=== PATIENT | female | born 1965 | race Caucasian/White ===

== ENCOUNTER 2021-01-26 02:16 | Emergency (ER) | payer OTHER, MEDICAID ==
[2021-01-26] MEDS ORDERED: LORazepam 2 MG/ML SDV IVPUSH ONE (02:25)
[2021-01-26] MEDS ORDERED: fentaNYL 100 MCG/2 ML SDV IVPUSH ONE (02:25)
--- NOTE | 2021-01-26 02:33 | EDM.PDOC ---
<Freddie Deng M - Last Filed: 01/26/21 03:21> ED HPI GENERAL MEDICAL PROBLEM - General Stated Complaint: TRAUMA CODE Time Seen by Provider: 01/26/21 02:26 Source of Information: Reports: Patient, Significant Other History Limitations: Reports: Altered Mental Status - History of Present Illness INITIAL COMMENTS - FREE TEXT/NARRATIVE: Geeta was brought in by ambulance after she called with complaints of epigastric pain,nausea and vomiting. Upon arrival of the EMS at home,she had a seizure like activity and lost her pulse. CPR was initiated for 2 min with ROSC. She received 100mcg of Fentanyl,1 mg of Versed and 4 mg of IV Zofran. She is quite agitated and unable to give much history. Her reports that she was recently treated for Colon cancer with hemicolectomy,and it is in remission. She also has GERD - Related Data Allergies Allergy/AdvReac Type Severity Reaction Status Date / Time gluten Allergy Headache Verified 01/26/21 03:02 Penicillins Allergy Hives Verified 01/26/21 03:02 Home Meds: Home Meds Calcium Carb/Vitamin D3/Vit K1 [Calcium + D Soft Chewable Tab] 2 tab PO BID 01/26/21 [History] Multivitamin with Minerals [Multivitamins with Minerals] 1 each PO DAILY 01/26/21 [History] Pantoprazole Sodium [Protonix] 40 mg PO BID 01/26/21 [History] dexAMETHasone [Dexamethasone] 4 mg PO BID 01/26/21 [History] ED ROS GENERAL - Review of Systems Review Of Systems: Comprehensive ROS is negative, except as noted in HPI. ED EXAM, GI/ABD - Physical Exam Exam: See Below Exam Limited By: Altered Mental Status General Appearance: Anxious, Mild Distress Nose: Normal Inspection Throat/Mouth: Normal Inspection, Normal Lips Head: Atraumatic Respiratory/Chest: Lungs Clear GI/Abdominal Exam: Normal Bowel Sounds, Non-Tender, Distended. No: Guarding, Rigid, Rebound Extremities: Normal Inspection, Pallor Neurological: Confused Psychiatric: Anxious Skin Exam: Warm #1 Interpretation EKG Date: 01/26/21 Time: 02:15 Rate (Beats/Min): 123 [place]: Normal P-Wave: Present Comparison: NA - No Prior EKG Course - Vital Signs Text/Narrative:: CT abd pelvis showed gas in the bladder? Infection,. We will obtain a UA,start antibiotic Departure - Departure Disposition: Home, Self-Care 01 Clinical Impression: Cardiac arrest, H/O colon cancer, stage IV Abdominal pain Qualifiers: Abdominal location: epigastric Qualified Code(s): R10.13 - Epigastric pain - Discharge Information Instructions: Compression-Only CPR, Adult Referrals: Nayeli De Leon MD [Primary Care Provider] - Additional Instructions: Please read discharge instructions on post CPR and colon CA Keep your appointment for your chemotherapy Follow up with your doctor tomorrow Return to the ED anytime if you don't feel well at all - Problem List & Annotations (1) Abdominal pain SNOMED Code(s): 12325854 Code(s): R10.9 - UNSPECIFIED ABDOMINAL PAIN Status: Acute Current Visit: Yes Qualifiers: Abdominal location: epigastric Qualified Code(s): R10.13 - Epigastric pain (2) H/O colon cancer, stage IV SNOMED Code(s): 007757794, 412365787 Code(s): Z85.038 - PERSONAL HISTORY OF MALIGNANT NEOPLASM OF LARGE INTESTINE Status: Acute Current Visit: No (3) Seizure SNOMED Code(s): 25948331 Code(s): R56.9 - UNSPECIFIED CONVULSIONS Status: Acute Current Visit: No (4) Altered mental state SNOMED Code(s): 497128687 Code(s): R41.82 - ALTERED MENTAL STATUS, UNSPECIFIED Status: Acute Current Visit: No (5) Cardiac arrest SNOMED Code(s): 328501682 Code(s): I46.9 - CARDIAC ARREST, CAUSE UNSPECIFIED Status: Acute Current Visit: No (6) HTN (hypertension) SNOMED Code(s): 32391909 Code(s): I10 - ESSENTIAL (PRIMARY) HYPERTENSION Status: Acute Current Visit: No (7) Leucocytosis SNOMED Code(s): 366461262, 440186820 Code(s): D72.829 - ELEVATED WHITE BLOOD CELL COUNT, UNSPECIFIED Status: Acute Current Visit: Yes - Problem List Review Problem List Initiated/Reviewed/Updated: Yes - Assessment/Plan Assessment:: Obtain 2 sets of blood cultures and start empiric abx therapy,IVF replacement. No beds available at [facility], <Shiva Muñiz - Last Filed: 01/26/21 18:20> Course - Vital Signs Last Recorded V/S: Last Vital Signs Temp Pulse 99 01/26/21 05:08 Resp 31 H 01/26/21 05:08 BP 121/77 01/26/21 05:08 Pulse Ox 100 01/26/21 05:08 - Orders/Labs/Meds Orders: Active Orders 24 hr Category Date Time Status Ang Chest [CT] Stat Exams 01/26/21 12:49 Taken Chest Abdomen Pelvis wo Cont [CT] Stat Exams 01/26/21 02:24 Taken Head wo Cont [CT] Stat Exams 01/26/21 13:23 Taken CULTURE BLOOD [BC] Urgent Lab 01/26/21 03:00 Results CULTURE BLOOD [BC] Urgent Lab 01/26/21 03:10 Received LORazepam [Ativan] Med 01/26/21 03:14 Active 0.5 mg IVPUSH Q4H PRN cefTRIAXone [Rocephin] Med 01/26/21 03:15 Active 2 gm IVPUSH Q24H fentaNYL [Sublimaze] Med 01/26/21 03:14 Active 50 mcg IVPUSH Q2H PRN Blood Culture x2 Reflex Set [OM.PC] Urgent Oth 01/26/21 02:42 Ordered EKG 12 Lead [EK] Routine Ther 01/26/21 02:24 Ordered Medication Orders Ceftriaxone Sodium (Ceftriaxone 2 Gm Vial) 2 gm IVPUSH Q24H CARY Last Admin: 01/26/21 03:43 Dose: 2 gm Documented by: NATASHA Fentanyl (Fentanyl 100 Mcg/2 Ml Sdv) 50 mcg IVPUSH Q2H PRN PRN Reason: Agitation Lorazepam (Lorazepam 2 Mg/Ml Sdv) 0.5 mg IVPUSH Q4H PRN PRN Reason: Agitation Last Admin: 01/26/21 03:43 Dose: 0.5 mg Documented by: NATASHA Labs: Laboratory Tests 01/26/21 01/26/21 01/26/21 Range/Units 02:25 02:25 02:25 WBC 30.1 H* (3.0-10.3) x10-3/uL RBC 5.80 H (3.60-5.20) x10(6)uL Hgb 16.4 H (11.4-15.5) g/dL Hct 51.7 H (34.2-48.2) % MCV 89.0 (76.7-100.5) fL MCH 28.2 (23.9-33.9) pg MCHC 31.6 L (31.9-34.8) g/dL RDW 14.7 (12.3-16.5) % Plt Count 190 (151-488) x10(3)uL MPV 6.8 L (7.1-12.4) fL Add Manual Diff Yes Neutrophils % (Manual) 70 (46-82) % Band Neutrophils % 1 (0-6) % Lymphocytes % (Manual) 22 (13-37) % Monocytes % (Manual) 5 (4-12) % Eosinophils % (Manual) 2 (0-5) % Sodium 144 (135-145) mmol/L Potassium 3.8 (3.5-5.3) mmol/L Chloride 104 (100-110) mmol/L Carbon Dioxide 22 (21-32) mmol/L BUN 19 H (7-18) mg/dL Creatinine 0.9 (0.55-1.02) mg/dL Est Cr Clr Drug Dosing TNP Estimated GFR (MDRD) > 60 (>60) BUN/Creatinine Ratio 21.1 H (9-20) Glucose 146 H (80-116) mg/dL POC Glucose (80-116) mg/dL Lactic Acid (0.4-2.0) mmol/L Calcium 9.3 (8.6-10.2) mg/dL Total Bilirubin (0.1-1.3) mg/dL Direct Bilirubin (0.10-0.20) mg/dL AST (5-25) IU/L ALT (12-36) U/L Alkaline Phosphatase (56-112) IU/L Troponin I 8.2 (4.0-60.3) pg/mL C-Reactive Protein < 0.2 L (0.5-0.9) mg/dL Total Protein (6.0-8.0) g/dL Albumin (3.5-5.2) g/dL Globulin g/dL Albumin/Globulin Ratio Urine Color (YELLOW) Urine Appearance (CLEAR) Urine pH (5.0-6.5) Ur Specific Flushing (1.010-1.025) Urine Protein (NEGATIVE) mg/dL Urine Glucose (UA) (NORMAL) mg/dL Urine Ketones (NEGATIVE) mg/dL Urine Occult Blood (NEGATIVE) Urine Nitrite (NEGATIVE) Urine Bilirubin (NEGATIVE) Urine Urobilinogen (NEGATIVE) mg/dL Ur Leukocyte Esterase (NEGATIVE) Urine RBC (0-5) Urine WBC (0-5) Ur Squamous Epith Cells (NS,R,O) Urine Bacteria (NS) Fine Granular Casts (NS) Coarse Granular Casts (NS) SARS-CoV-2 RNA (GLADYS) (NEGATIVE) 01/26/21 01/26/21 01/26/21 Range/Units 02:25 02:31 03:35 WBC (3.0-10.3) x10-3/uL RBC (3.60-5.20) x10(6)uL Hgb (11.4-15.5) g/dL Hct (34.2-48.2) % MCV (76.7-100.5) fL MCH (23.9-33.9) pg MCHC (31.9-34.8) g/dL RDW (12.3-16.5) % Plt Count (151-488) x10(3)uL MPV (7.1-12.4) fL Add Manual Diff Neutrophils % (Manual) (46-82) % Band Neutrophils % (0-6) % Lymphocytes % (Manual) (13-37) % Monocytes % (Manual) (4-12) % Eosinophils % (Manual) (0-5) % Sodium (135-145) mmol/L Potassium (3.5-5.3) mmol/L Chloride (100-110) mmol/L Carbon Dioxide (21-32) mmol/L BUN (7-18) mg/dL Creatinine (0.55-1.02) mg/dL Est Cr Clr Drug Dosing Estimated GFR (MDRD) (>60) BUN/Creatinine Ratio (9-20) Glucose (80-116) mg/dL POC Glucose 118 H (80-116) mg/dL Lactic Acid (0.4-2.0) mmol/L Calcium (8.6-10.2) mg/dL Total Bilirubin 1.8 H (0.1-1.3) mg/dL Direct Bilirubin 0.84 H (0.10-0.20) mg/dL AST 1627 H* (5-25) IU/L ALT 1497 H* (12-36) U/L Alkaline Phosphatase 151 H (56-112) IU/L Troponin I (4.0-60.3) pg/mL C-Reactive Protein (0.5-0.9) mg/dL Total Protein 7.0 (6.0-8.0) g/dL Albumin 3.8 (3.5-5.2) g/dL Globulin g/dL Albumin/Globulin Ratio Urine Color Yellow (YELLOW) Urine Appearance Slightly cloudy (CLEAR) Urine pH 6.5 (5.0-6.5) Ur Specific [place]ushing 1.020 (1.010-1.025) Urine Protein 100 H (NEGATIVE) mg/dL Urine Glucose (UA) Normal (NORMAL) mg/dL Urine Ketones 15 H (NEGATIVE) mg/dL Urine Occult Blood Large H (NEGATIVE) Urine Nitrite Negative (NEGATIVE) Urine Bilirubin Negative (NEGATIVE) Urine Urobilinogen Normal (NEGATIVE) mg/dL Ur Leukocyte Esterase Negative (NEGATIVE) Urine RBC 5-10 H (0-5) Urine WBC 0-5 (0-5) Ur Squamous Epith Cells Few H (NS,R,O) Urine Bacteria Moderate H (NS) Fine Granular Casts Few H (NS) Coarse Granular Casts Few H (NS) SARS-CoV-2 RNA (GLADYS) (NEGATIVE) 01/26/21 01/26/21 01/26/21 Range/Units 05:40 05:40 05:40 WBC 10.9 H (3.0-10.3) x10-3/uL RBC 4.88 (3.60-5.20) x10(6)uL Hgb 13.9 (11.4-15.5) g/dL Hct 41.8 (34.2-48.2) % MCV 85.6 (76.7-100.5) fL MCH 28.4 (23.9-33.9) pg MCHC 33.2 (31.9-34.8) g/dL RDW 14.1 (12.3-16.5) % Plt Count 52 L (151-488) x10(3)uL MPV 6.6 L (7.1-12.4) fL Add Manual Diff Yes Neutrophils % (Manual) 90 H (46-82) % Band Neutrophils % 2 (0-6) % Lymphocytes % (Manual) 5 L (13-37) % Monocytes % (Manual) 3 L (4-12) % Eosinophils % (Manual) (0-5) % Sodium 142 (135-145) mmol/L Potassium 4.4 (3.5-5.3) mmol/L Chloride 106 (100-110) mmol/L Carbon Dioxide 28 (21-32) mmol/L BUN 20 H (7-18) mg/dL Creatinine 0.9 (0.55-1.02) mg/dL Est Cr Clr Drug Dosing 50.73 Estimated GFR (MDRD) > 60 (>60) BUN/Creatinine Ratio 22.2 H (9-20) Glucose 110 (80-116) mg/dL POC Glucose (80-116) mg/dL Lactic Acid 2.7 H* (0.4-2.0) mmol/L Calcium 8.6 (8.6-10.2) mg/dL Total Bilirubin 3.3 H (0.1-1.3) mg/dL Direct Bilirubin (0.10-0.20) mg/dL AST 1792 H* D (5-25) IU/L ALT 1622 H* D (12-36) U/L Alkaline Phosphatase 112 (56-112) IU/L Troponin I (4.0-60.3) pg/mL C-Reactive Protein (0.5-0.9) mg/dL Total Protein 5.6 L (6.0-8.0) g/dL Albumin 3.1 L (3.5-5.2) g/dL Globulin 2.5 g/dL Albumin/Globulin Ratio 1.2 Urine Color (YELLOW) Urine Appearance (CLEAR) Urine pH (5.0-6.5) Ur Specific Flushing (1.010-1.025) Urine Protein (NEGATIVE) mg/dL Urine Glucose (UA) (NORMAL) mg/dL Urine Ketones (NEGATIVE) mg/dL Urine Occult Blood (NEGATIVE) Urine Nitrite (NEGATIVE) Urine Bilirubin (NEGATIVE) Urine Urobilinogen (NEGATIVE) mg/dL Ur Leukocyte Esterase (NEGATIVE) Urine RBC (0-5) Urine WBC (0-5) Ur Squamous Epith Cells (NS,R,O) Urine Bacteria (NS) Fine Granular Casts (NS) Coarse Granular Casts (NS) SARS-CoV-2 RNA (GLADYS) (NEGATIVE) 01/26/21 01/26/21 01/26/21 Range/Units 08:40 08:40 09:33 WBC (3.0-10.3) x10-3/uL RBC (3.60-5.20) x10(6)uL Hgb (11.4-15.5) g/dL Hct (34.2-48.2) % MCV (76.7-100.5) fL MCH (23.9-33.9) pg MCHC (31.9-34.8) g/dL RDW (12.3-16.5) % Plt Count (151-488) x10(3)uL MPV (7.1-12.4) fL Add Manual Diff Neutrophils % (Manual) (46-82) % Band Neutrophils % (0-6) % Lymphocytes % (Manual) (13-37) % Monocytes % (Manual) (4-12) % Eosinophils % (Manual) (0-5) % Sodium (135-145) mmol/L Potassium (3.5-5.3) mmol/L Chloride (100-110) mmol/L Carbon Dioxide (21-32) mmol/L BUN (7-18) mg/dL Creatinine (0.55-1.02) mg/dL Est Cr Clr Drug Dosing Estimated GFR (MDRD) (>60) BUN/Creatinine Ratio (9-20) Glucose (80-116) mg/dL POC Glucose (80-116) mg/dL Lactic Acid 1.7 (0.4-2.0) mmol/L Calcium (8.6-10.2) mg/dL Total Bilirubin (0.1-1.3) mg/dL Direct Bilirubin (0.10-0.20) mg/dL AST (5-25) IU/L ALT (12-36) U/L Alkaline Phosphatase (56-112) IU/L Troponin I 54.4 (4.0-60.3) pg/mL C-Reactive Protein (0.5-0.9) mg/dL Total Protein (6.0-8.0) g/dL Albumin (3.5-5.2) g/dL Globulin g/dL Albumin/Globulin Ratio Urine Color (YELLOW) Urine Appearance (CLEAR) Urine pH (5.0-6.5) Ur Specific Flushing (1.010-1.025) Urine Protein (NEGATIVE) mg/dL Urine Glucose (UA) (NORMAL) mg/dL Urine Ketones (NEGATIVE) mg/dL Urine Occult Blood (NEGATIVE) Urine Nitrite (NEGATIVE) Urine Bilirubin (NEGATIVE) Urine Urobilinogen (NEGATIVE) mg/dL Ur Leukocyte Esterase (NEGATIVE) Urine RBC (0-5) Urine WBC (0-5) Ur Squamous Epith Cells (NS,R,O) Urine Bacteria (NS) Fine Granular Casts (NS) Coarse Granular Casts (NS) SARS-CoV-2 RNA (GLADYS) Negative (NEGATIVE) Meds: Medications Generic Name Dose Route Start Last Admin Trade Name Freq PRN Reason Stop Dose Admin Ceftriaxone Sodium 2 gm 01/26/21 03:15 01/26/21 03:43 Ceftriaxone 2 Gm Vial IVPUSH 2 gm Q24H CARY Administration Fentanyl 50 mcg 01/26/21 03:14 Fentanyl 100 Mcg/2 Ml Sdv IVPUSH Q2H PRN Agitation Lorazepam 0.5 mg 01/26/21 03:14 01/26/21 03:43 Lorazepam 2 Mg/Ml Sdv IVPUSH 0.5 mg Q4H PRN Administration Agitation Discontinued Medications Generic Name Dose Route Start Last Admin Trade Name Freq PRN Reason Stop Dose Admin Hydrocodone Bitart/Acetaminophen 2 tab 01/26/21 12:55 01/26/21 13:02 Acetaminophen/Hydrocodone 325-5 Mg Tab PO 01/26/21 12:56 2 tab NOW STA Administration Fentanyl 100 mcg 01/26/21 02:25 01/26/21 02:25 Fentanyl 100 Mcg/2 Ml Sdv IVPUSH 01/26/21 02:26 100 mcg ONETIME ONE Administration Iopamidol 75 ml 01/26/21 13:37 01/26/21 14:08 Iopamidol 755 Mg/Ml 75 Ml Bottle IV 01/26/21 13:38 75 ml ASDIRECTED ONE Administration Ketorolac Tromethamine 30 mg 01/26/21 07:25 01/26/21 07:29 Ketorolac 30 Mg/Ml Sdv IVPUSH 01/26/21 07:26 30 mg NOW STA Administration Lorazepam 1 mg 01/26/21 02:25 01/26/21 02:25 Lorazepam 2 Mg/Ml Sdv IVPUSH 01/26/21 02:26 1 mg ONETIME ONE Administration Departure - Departure Time of Disposition: 18:30 Condition: Good - My Orders Last 24 Hours: My Active Orders 01/26/21 12:49 Ang Chest [CT] Stat 01/26/21 13:23 Head wo Cont [CT] Stat - Assessment/Plan Last 24 Hours: My Active Orders 01/26/21 12:49 Ang Chest [CT] Stat 01/26/21 13:23 Head wo Cont [CT] Stat
[2021-01-26] MEDS ORDERED: fentaNYL 100 MCG/2 ML SDV IVPUSH PRN (03:14)
[2021-01-26] MEDS ORDERED: LORazepam 2 MG/ML SDV IVPUSH PRN (03:14)
[2021-01-26] MEDS ORDERED: cefTRIAXone 2 GM Vial IVPUSH SCH (03:15)
--- NOTE | 2021-01-26 04:08 | PCM.SN.2 ---
- Free Text/Narrative Note: [facility]EST[facility] Date: 01/26/2021 Time: 231 to 414 Dx: S/P Cardiac Arrest Off-site Rx: Physician Standby Services [[id number]] I was called to the ED per the ED physician's request. Upon arrival I found a patient semicomatose with abdominal pain. EMS stated that she had a witnessed cardiac event with CPR [NO DRUGS / AIRWAY DEVICE] for approximately 2 minutes. Her airway is currently stable with SpO2 100% O2/NC, EtCO2 mid 30's and her RR at 30. Dr. Freddie Deng [ED physician] requested to have me standby for a possible airway situation since she has arrested recently. I did escorted the patient to C.T. without any intervention. I will continue to standby until released by the ED physician Rafael Castañeda CRNA, [facility] Time Documentation
[2021-01-26] MEDS ORDERED: Ketorolac 30 MG/ML SDV IVPUSH STA (07:25)
[2021-01-26] MEDS ORDERED: Acetaminophen/HYDROcodone 325-5 MG Tab PO STA (12:55)
[2021-01-26] MEDS ORDERED: Iopamidol 755 Mg/ML 75 ML Bottle IV ONE (13:37)
== END 2021-01-26 18:30 | disposition home or self-care (01) ==
LOC: FB.ED 02:16
DX: I46.9 Cardiac arrest, cause unspecified (principal); R10.13 Epigastric pain; Z91.018 Allergy to other foods; Z88.0 Allergy status to penicillin; Z79.899 Other long term (current) drug therapy; Z85.038 Personal history of other malignant neoplasm of large intestine
CPT/HCPCS: 36415; 51702; 70450; 71250; 71275; 74176; 80048; 80053; 80076; 81001; 82947; 83605; 84484; 85025; 86140; 87040; 93005; 96374; 96375; 96376; 99285-25; A9270-GY; J0696; J1885; J2060; J3010; Q9967; U0002